=== PATIENT | female | born 1955 | race Caucasian/White ===

== ENCOUNTER 2016-09-07 08:42 | Outpatient (CLI) | payer BC ==
[2016-09-07 09:55] LABS: ALT (SGPT) 19 U/L (0-55); AST (SGOT) 20 U/L (5-34); Alkaline Phosphatase 66 U/L (40-150); Bilirubin, Direct 0.4 mg/dL (0.1-0.3); Bilirubin, Total 1.4 mg/dL (0.2-1.2); LDL Cholesterol, Calculated 124 mg/dL
== END 2016-09-07 08:43 | disposition home or self-care (01) ==
LOC: BURLAB 08:42
PROVIDERS: ATTEND Internal Medicine Cardiovascular Disease
DX: E78.00 Pure hypercholesterolemia, unspecified (principal)
CPT/HCPCS: 36415; 80061; 80076

== ENCOUNTER 2021-12-22 12:32 | Outpatient (CLI) | payer MEDICARE, BC | END 2021-12-22 12:33 | disposition home or self-care (01) | LOC: BURRAD 12:32 | PROVIDERS: ATTEND Family Medicine | DX: M17.12 Unilateral primary osteoarthritis, left knee (principal) ==